=== PATIENT | male | born 1980 | race Caucasian/White ===

== ENCOUNTER 2021-08-04 15:53 | Inpatient (IN) | payer OTHER ==
[2021-08-04 17:59] VITALS: BMI 29.0
[2021-08-04] MEDS ORDERED: IBUPROFEN 400 MG TABLET (FP) PO PRN (20:48)
[2021-08-04] MEDS ORDERED: BISMUTH SUBSALICYLATE 524 MG/30 ML PO PRN (20:48)
[2021-08-04] MEDS ORDERED: MENTHOL/PHENOL 1 EACH UD MM PRN (20:48)
[2021-08-04] MEDS ORDERED: ACETAMINOPHEN 325 MG TABLET (FP) PO PRN (20:48)
[2021-08-04] MEDS ORDERED: MAGNESIUM CITRATE 300 ML BOTTLE PO PRN (20:48)
[2021-08-04] MEDS ORDERED: P-EPHED 60MG/TRIPROLIDI 2.5MG TABLET PO PRN (20:48)
[2021-08-04] MEDS ORDERED: ONDANSETRON *ODT* 4 MG TABLET SL PRN (20:48)
[2021-08-04] MEDS ORDERED: MAG HYDROX/AL HYDROX/SIMETH 30 ML UNIT-DOSE CUP PO PRN (20:48)
[2021-08-04] MEDS ORDERED: guaiFENesin 200 MG/10 ML 10 ML UNIT-DOSE CUPS PO PRN (20:48)
[2021-08-04] MEDS ORDERED: MAGNESIUM HYDROX 2400MG/30ML ORAL SUSPENSION 30 ML CUP PO PRN (20:48)
[2021-08-04] MEDS ORDERED: methaDONE HCL 10 MG TABLET (FOR DETOX USE ONLY) PO ONE (20:50)
[2021-08-04] MEDS: MELATONIN 5 MG TABLETS PO SCH (22:10)
[2021-08-04] MEDS: diazePAM 5 MG TABLET PO SCH (22:10)
[2021-08-04] MEDS: THIAMINE HCL 100 MG TABLET (FP) PO SCH (22:10)
[2021-08-05] MEDS: diazePAM 5 MG TABLET PO SCH ×4 (06:01→23:15)
[2021-08-05] MEDS ORDERED: methaDONE HCL 10 MG TABLET (FOR DETOX USE ONLY) ONE (09:52)
[2021-08-05] MEDS ORDERED: MASKS NR ONE (10:40)
[2021-08-05] MEDS: PRENATAL VITAMINS W/ FOLIC ACID TABLET (FP) PO SCH (10:48)
[2021-08-05] MEDS: METHOCARBAMOL 500 MG TABLET PO PRN ×2 (10:48→17:15)
[2021-08-05 11:56] LABS: HEMATOCRIT 41.1 % (35.4-49); HEMOGLOBIN 14.5 GM/dL (11.7-16.9); MCH 30.2 pg (25.7-33.7); MCHC 35.3 g/dl (32.0-35.9); MEAN CELL VOLUME 85.6 fl (80-96); MEAN PLT VOLUME 8.4 fl (7.5-11.1); PLATELET COUNT 191 10^3/uL (134-434); RDW 13.6 % (11.9-15.9); WHITE BLOOD COUNT 5.5 K/mm3 (4.0-10.0)
[2021-08-05 12:32] LABS: ALBUMIN 3.4 g/dl (3.4-5.0); BLOOD UREA NITROGEN 13.6 mg/dL (7-18); CALCIUM 8.5 mg/dL (8.5-10.1)
[2021-08-05 12:37] LABS: CREATININE 0.7 mg/dL (0.55-1.3)
[2021-08-05 12:38] LABS: BILIRUBIN,TOTAL 0.8 mg/dL (0.2-1); TOT PROT 6.8 g/dl (6.4-8.2)
[2021-08-05] MEDS: hydrOXYzine PAMOATE 25 MG CAPSULE (FP) PO PRN (17:14)
[2021-08-05] MEDS: cloNIDine HCL 0.1 MG TABLET PO PRN (17:15)
[2021-08-05] MEDS: MELATONIN 5 MG TABLETS PO SCH (23:13)
[2021-08-05] MEDS: INSULIN SLIDING SCALE (NOVOLOG) 1 VIAL SQ SCH (23:14)
[2021-08-05] MEDS: THIAMINE HCL 100 MG TABLET (FP) PO SCH (23:15)
[2021-08-06] MEDS: diazePAM 5 MG TABLET PO PRN ×2 (01:13→10:47)
[2021-08-06] MEDS: ACETAMINOPHEN 325 MG TABLET (FP) PO PRN ×2 (01:14→19:00)
[2021-08-06] MEDS: METHOCARBAMOL 500 MG TABLET PO PRN ×2 (01:14→10:47)
[2021-08-06] MEDS: cloNIDine HCL 0.1 MG TABLET PO PRN (01:15)
[2021-08-06] MEDS: hydrOXYzine PAMOATE 25 MG CAPSULE (FP) PO PRN ×2 (01:15→10:46)
[2021-08-06] MEDS: diazePAM 5 MG TABLET PO SCH ×2 (06:25→17:43)
[2021-08-06] MEDS: INSULIN SLIDING SCALE (NOVOLOG) 1 VIAL SQ SCH ×4 (06:55→21:19)
[2021-08-06] MEDS ORDERED: methaDONE HCL 10 MG TABLET (FOR DETOX USE ONLY) PO ONE (10:00)
[2021-08-06] MEDS: PRENATAL VITAMINS W/ FOLIC ACID TABLET (FP) PO SCH (10:48)
[2021-08-06] MEDS: ASPIRIN 81 MG CHEWABLE TABLETS PO SCH (13:26)
[2021-08-06] MEDS: METOPROLOL TARTRATE 25 MG TABLET (FP) PO SCH (13:26)
[2021-08-06] MEDS ORDERED: NICOTINE 10 MG CARTRIDGE (INHALER) IH PRN (15:02)
[2021-08-06] MEDS: metFORMIN HCL 500 MG TABLET (FP) PO SCH (17:43)
[2021-08-06] MEDS: LISINOPRIL 20 MG TABLET PO SCH (21:15)
[2021-08-06] MEDS: THIAMINE HCL 100 MG TABLET (FP) PO SCH (21:15)
[2021-08-06] MEDS: MELATONIN 5 MG TABLETS PO SCH (21:16)
[2021-08-07] MEDS ORDERED: diazePAM 5 MG TABLET PO ONE ×2 (06:00→22:38)
[2021-08-07] MEDS: metFORMIN HCL 500 MG TABLET (FP) PO SCH ×2 (06:04→17:42)
[2021-08-07] MEDS: INSULIN SLIDING SCALE (NOVOLOG) 1 VIAL SQ SCH ×3 (06:04→18:27)
[2021-08-07] MEDS ORDERED: methaDONE HCL 10 MG TABLET (FOR DETOX USE ONLY) ONE (09:26)
[2021-08-07] MEDS: METHOCARBAMOL 500 MG TABLET PO PRN ×2 (10:32→23:03)
[2021-08-07] MEDS: LISINOPRIL 20 MG TABLET PO SCH ×2 (10:32→23:04)
[2021-08-07] MEDS: ASPIRIN 81 MG CHEWABLE TABLETS PO SCH (10:32)
[2021-08-07] MEDS: METOPROLOL TARTRATE 25 MG TABLET (FP) PO SCH (10:32)
[2021-08-07] MEDS: PRENATAL VITAMINS W/ FOLIC ACID TABLET (FP) PO SCH (10:33)
[2021-08-07] MEDS: ACETAMINOPHEN 325 MG TABLET (FP) PO PRN ×2 (12:23→17:44)
[2021-08-07] MEDS: GABAPENTIN 100 MG CAPSULE PO SCH ×2 (14:02→23:03)
[2021-08-07] MEDS: hydrOXYzine PAMOATE 25 MG CAPSULE (FP) PO PRN ×2 (17:44→23:03)
[2021-08-07] MEDS: diazePAM 5 MG TABLET PO PRN (17:44)
[2021-08-07] MEDS: MELATONIN 5 MG TABLETS PO SCH (23:03)
[2021-08-07] MEDS: THIAMINE HCL 100 MG TABLET (FP) PO SCH (23:03)
[2021-08-08] MEDS: GABAPENTIN 100 MG CAPSULE PO SCH (07:19)
[2021-08-08] MEDS: INSULIN SLIDING SCALE (NOVOLOG) 1 VIAL SQ SCH ×2 (07:20→11:55)
[2021-08-08] MEDS: metFORMIN HCL 500 MG TABLET (FP) PO SCH (08:04)
[2021-08-08] MEDS ORDERED: methaDONE HCL 10 MG TABLET (FOR DETOX USE ONLY) PO ONE (10:00)
[2021-08-08] MEDS ORDERED: DIVALPROEX SODIUM 250 MG TABLET E.C. PO SCH (10:00)
[2021-08-08] MEDS ORDERED: SERTRALINE HCL 50 MG TABLET (FP) PO SCH (10:00)
[2021-08-08 10:03] VITALS: BP 114/69; PULSE 73; TEMP 96.4
[2021-08-08] MEDS: LISINOPRIL 20 MG TABLET PO SCH (10:53)
[2021-08-08] MEDS: METOPROLOL TARTRATE 25 MG TABLET (FP) PO SCH (10:53)
[2021-08-08] MEDS: ASPIRIN 81 MG CHEWABLE TABLETS PO SCH (10:53)
[2021-08-08] MEDS: PRENATAL VITAMINS W/ FOLIC ACID TABLET (FP) PO SCH (10:54)
[2021-08-08] MEDS: hydrOXYzine PAMOATE 25 MG CAPSULE (FP) PO PRN (10:58)
[2021-08-08] MEDS ORDERED: GABAPENTIN 250 MG/5 ML ORAL SOLUTION, 470 ML BOTTLE PO SCH (14:00)
[2021-08-08] MEDS ORDERED: GABAPENTIN 300 MG CAPSULE PO SCH (14:00)
== END 2021-08-08 13:45 | disposition left against medical advice (07) | DRG 770 ==
LOC: YASAS 15:53 → Y3N 19:57
PROVIDERS: ADMIT Allergy & Immunology; ATTEND Allergy & Immunology
PROC: HZ2ZZZZ Detoxification Services for Substance Abuse Treatment (ICD-10-PCS; principal; 2021-08-04)
DX: F11.23 Opioid dependence with withdrawal (principal); F13.230 Sedative, hypnotic or anxiolytic dependence with withdrawal, uncomplicated; F14.20 Cocaine dependence, uncomplicated; F17.210 Nicotine dependence, cigarettes, uncomplicated; F19.24 Other psychoactive substance dependence with psychoactive substance-induced mood disorder; G47.00 Insomnia, unspecified; R01.1 Cardiac murmur, unspecified; Z89.422 Acquired absence of other left toe(s); Z91.19 Patient's noncompliance with other medical treatment and regimen; Z86.19 Personal history of other infectious and parasitic diseases; Z56.0 Unemployment, unspecified; Z59.00 Homelessness unspecified
CPT/HCPCS: 36415; 71046-TC-FY; 80053; 82962; 85027; 86780; C9803; J0735; U0003; U0005

== ENCOUNTER 2022-08-03 12:48 | Inpatient (IN) | payer OTHER ==
[2022-08-03 14:25] VITALS: BMI 32.3
[2022-08-03] MEDS ORDERED: NALOXONE HCL (KLOXXADO) 8 MG SPRAY NS PRN (15:31)
[2022-08-03] MEDS ORDERED: DICYCLOMINE HCL 10 MG CAPSULE PO PRN (15:31)
[2022-08-03] MEDS ORDERED: NICOTINE 10 MG CARTRIDGE (INHALER) IH PRN (15:31)
[2022-08-03] MEDS ORDERED: LOPERAMIDE HCL 2 MG CAPSULE PO PRN (15:31)
[2022-08-03] MEDS ORDERED: BENZOCAINE/MENTHOL (CHLORASEPTIC ) LOZENGE MM PRN (15:31)
[2022-08-03] MEDS ORDERED: MAGNESIUM CITRATE 300 ML BOTTLE PO PRN (15:31)
[2022-08-03] MEDS ORDERED: IBUPROFEN 400 MG TABLET (FP) PO PRN (15:31)
[2022-08-03] MEDS ORDERED: ONDANSETRON *ODT* 4 MG TABLET SL PRN (15:31)
[2022-08-03] MEDS ORDERED: IBUPROFEN 600 MG TABLET (FP) PO PRN (15:31)
[2022-08-03] MEDS ORDERED: cloNIDine HCL 0.1 MG TABLET PO PRN (15:31)
[2022-08-03] MEDS ORDERED: MAG HYDROX/AL HYDROX/SIMETH 30 ML UNIT-DOSE CUP PO PRN (15:31)
[2022-08-03] MEDS ORDERED: ACETAMINOPHEN 325 MG TABLET (FP) PO PRN ×2 (15:31)
[2022-08-03] MEDS ORDERED: MAGNESIUM HYDROX 2400MG/30ML ORAL SUSPENSION 30 ML CUP PO PRN (15:31)
[2022-08-03] MEDS ORDERED: BISMUTH SUBSALICYLATE 524 MG/30 ML PO PRN (15:31)
[2022-08-03] MEDS ORDERED: methaDONE HCL 10 MG TABLET (FOR DETOX USE ONLY) PO ONE (15:31)
[2022-08-03] MEDS ORDERED: INSULIN (NOVOLOG) ASPART 100 UNITS/ML 10ML VIAL ONE ×2 (15:58→23:31)
[2022-08-03] MEDS: INSULIN SLIDING SCALE (NOVOLOG) 1 VIAL SQ SCH ×2 (16:00→23:32)
[2022-08-03] MEDS: diazePAM 5 MG TABLET PO SCH ×3 (17:18→23:32)
[2022-08-03] MEDS: ASPIRIN 81 MG CHEWABLE TABLETS PO SCH (17:48)
[2022-08-03] MEDS: hydrOXYzine PAMOATE 25 MG CAPSULE (FP) PO SCH ×2 (17:48→23:33)
[2022-08-03] MEDS: METOPROLOL TARTRATE 25 MG TABLET (FP) PO SCH (17:48)
[2022-08-03] MEDS: metFORMIN HCL 500 MG TABLET (FP) PO SCH (17:48)
[2022-08-03] MEDS: PRENATAL VITAMINS W/ FOLIC ACID TABLET (FP) PO SCH (17:49)
[2022-08-03] MEDS: diazePAM 5 MG TABLET PO PRN (17:50)
[2022-08-03] MEDS: NICOTINE 14 MG/24 HOURS TOPICAL PATCH TD SCH (18:03)
[2022-08-03] MEDS: LISINOPRIL 20 MG TABLET PO SCH (23:32)
[2022-08-03] MEDS: THIAMINE HCL 100 MG TABLET (FP) PO SCH (23:32)
[2022-08-03] MEDS: MELATONIN 5 MG TABLETS PO SCH (23:33)
[2022-08-04] MEDS: metFORMIN HCL 500 MG TABLET (FP) PO SCH ×2 (06:21→18:37)
[2022-08-04] MEDS: diazePAM 5 MG TABLET PO SCH ×2 (06:21→18:50)
[2022-08-04] MEDS: hydrOXYzine PAMOATE 25 MG CAPSULE (FP) PO SCH ×5 (06:21→23:50)
[2022-08-04] MEDS: INSULIN SLIDING SCALE (NOVOLOG) 1 VIAL SQ SCH ×4 (06:37→23:20)
[2022-08-04] MEDS: NICOTINE 14 MG/24 HOURS TOPICAL PATCH TD SCH (10:22)
[2022-08-04] MEDS: METOPROLOL TARTRATE 25 MG TABLET (FP) PO SCH (10:22)
[2022-08-04] MEDS: ASPIRIN 81 MG CHEWABLE TABLETS PO SCH (10:22)
[2022-08-04] MEDS: LISINOPRIL 20 MG TABLET PO SCH ×2 (10:22→23:19)
[2022-08-04] MEDS: METHOCARBAMOL 500 MG TABLET PO PRN (10:22)
[2022-08-04] MEDS: PRENATAL VITAMINS W/ FOLIC ACID TABLET (FP) PO SCH (10:22)
[2022-08-04] MEDS: diazePAM 5 MG TABLET PO PRN ×2 (10:22→23:24)
[2022-08-04] MEDS: SERTRALINE HCL 50 MG TABLET (FP) PO SCH (11:31)
[2022-08-04] MEDS: HALOPERIDOL 5 MG TABLET PO SCH ×2 (11:31→23:19)
[2022-08-04] MEDS ORDERED: INSULIN (NOVOLOG) ASPART 100 UNITS/ML 10ML VIAL ONE ×2 (11:40→17:21)
[2022-08-04] MEDS: GABAPENTIN 300 MG CAPSULE PO SCH ×2 (13:16→23:19)
[2022-08-04 13:46] LABS: HEMATOCRIT 36.7 % (35.4-49); HEMOGLOBIN 12.3 GM/dL (11.7-16.9); MCH 27.9 pg (25.7-33.7); MCHC 33.5 g/dl (32.0-35.9); MEAN CELL VOLUME 83.3 fl (80-96); MEAN PLT VOLUME 8.2 fl (7.5-11.1); PLATELET COUNT 257 10^3/uL (134-434); RDW 14.1 % (11.9-15.9); WHITE BLOOD COUNT 7.2 K/mm3 (4.0-10.0)
[2022-08-04 13:58] LABS: ALBUMIN 3.3 g/dl (3.4-5.0); BLOOD UREA NITROGEN 18.3 mg/dL (7-18); CREATININE 0.9 mg/dL (0.55-1.3)
[2022-08-04 14:00] LABS: BILIRUBIN,TOTAL 0.4 mg/dL (0.2-1); TOT PROT 6.5 g/dl (6.4-8.2)
[2022-08-04] MEDS: THIAMINE HCL 100 MG TABLET (FP) PO SCH (23:19)
[2022-08-04] MEDS: MELATONIN 5 MG TABLETS PO SCH (23:20)
[2022-08-05] MEDS: hydrOXYzine PAMOATE 25 MG CAPSULE (FP) PO SCH ×5 (05:06→22:58)
[2022-08-05] MEDS: GABAPENTIN 300 MG CAPSULE PO SCH ×3 (05:06→22:03)
[2022-08-05] MEDS ORDERED: diazePAM 5 MG TABLET PO ONE (06:00)
[2022-08-05] MEDS: metFORMIN HCL 500 MG TABLET (FP) PO SCH ×2 (06:04→17:56)
[2022-08-05] MEDS: INSULIN SLIDING SCALE (NOVOLOG) 1 VIAL SQ SCH ×4 (06:43→22:05)
[2022-08-05] MEDS ORDERED: INSULIN (NOVOLOG) ASPART 100 UNITS/ML 10ML VIAL ONE ×4 (07:38→22:07)
[2022-08-05] MEDS ORDERED: methaDONE HCL 10 MG TABLET (FOR DETOX USE ONLY) PO ONE (10:00)
[2022-08-05] MEDS: HALOPERIDOL 5 MG TABLET PO SCH ×2 (10:31→22:03)
[2022-08-05] MEDS: ASPIRIN 81 MG CHEWABLE TABLETS PO SCH (10:31)
[2022-08-05] MEDS: METOPROLOL TARTRATE 25 MG TABLET (FP) PO SCH (10:32)
[2022-08-05] MEDS: SERTRALINE HCL 50 MG TABLET (FP) PO SCH (10:32)
[2022-08-05] MEDS: METHOCARBAMOL 500 MG TABLET PO PRN (10:32)
[2022-08-05] MEDS: LISINOPRIL 20 MG TABLET PO SCH ×2 (10:32→22:03)
[2022-08-05] MEDS: PRENATAL VITAMINS W/ FOLIC ACID TABLET (FP) PO SCH (10:32)
[2022-08-05] MEDS: diazePAM 5 MG TABLET PO PRN ×2 (10:33→22:07)
[2022-08-05] MEDS: NICOTINE 14 MG/24 HOURS TOPICAL PATCH TD SCH (10:35)
[2022-08-05] MEDS: THIAMINE HCL 100 MG TABLET (FP) PO SCH (22:03)
[2022-08-05] MEDS: MELATONIN 5 MG TABLETS PO SCH (22:58)
[2022-08-06] MEDS: GABAPENTIN 300 MG CAPSULE PO SCH ×3 (05:18→23:00)
[2022-08-06] MEDS: hydrOXYzine PAMOATE 25 MG CAPSULE (FP) PO SCH ×5 (05:18→23:01)
[2022-08-06] MEDS: diazePAM 5 MG TABLET PO PRN ×2 (05:19→10:23)
[2022-08-06] MEDS: metFORMIN HCL 500 MG TABLET (FP) PO SCH ×2 (07:15→17:00)
[2022-08-06] MEDS: INSULIN SLIDING SCALE (NOVOLOG) 1 VIAL SQ SCH ×4 (07:52→23:00)
[2022-08-06] MEDS: ASPIRIN 81 MG CHEWABLE TABLETS PO SCH (10:21)
[2022-08-06] MEDS: PRENATAL VITAMINS W/ FOLIC ACID TABLET (FP) PO SCH (10:22)
[2022-08-06] MEDS: METOPROLOL TARTRATE 25 MG TABLET (FP) PO SCH (10:22)
[2022-08-06] MEDS: METHOCARBAMOL 500 MG TABLET PO PRN ×2 (10:22→17:00)
[2022-08-06] MEDS: LISINOPRIL 20 MG TABLET PO SCH ×2 (10:22→23:00)
[2022-08-06] MEDS: SERTRALINE HCL 50 MG TABLET (FP) PO SCH (10:22)
[2022-08-06] MEDS: NICOTINE 14 MG/24 HOURS TOPICAL PATCH TD SCH (10:23)
[2022-08-06] MEDS: HALOPERIDOL 5 MG TABLET PO SCH ×2 (12:45→23:00)
[2022-08-06] MEDS ORDERED: INSULIN (NOVOLOG) ASPART 100 UNITS/ML 10ML VIAL ONE ×2 (16:59→22:59)
[2022-08-06] MEDS: THIAMINE HCL 100 MG TABLET (FP) PO SCH (23:00)
[2022-08-06] MEDS: MELATONIN 5 MG TABLETS PO SCH (23:21)
[2022-08-07] MEDS: GABAPENTIN 300 MG CAPSULE PO SCH ×3 (05:58→22:36)
[2022-08-07] MEDS: hydrOXYzine PAMOATE 25 MG CAPSULE (FP) PO SCH ×5 (05:59→22:37)
[2022-08-07] MEDS ORDERED: INSULIN (NOVOLOG) ASPART 100 UNITS/ML 10ML VIAL ONE ×2 (07:26→11:04)
[2022-08-07] MEDS: INSULIN SLIDING SCALE (NOVOLOG) 1 VIAL SQ SCH ×4 (07:30→22:40)
[2022-08-07] MEDS: metFORMIN HCL 500 MG TABLET (FP) PO SCH ×2 (07:30→17:26)
[2022-08-07] MEDS ORDERED: methaDONE HCL 10 MG TABLET (FOR DETOX USE ONLY) PO ONE (10:00)
[2022-08-07] MEDS: ASPIRIN 81 MG CHEWABLE TABLETS PO SCH (10:42)
[2022-08-07] MEDS: METHOCARBAMOL 500 MG TABLET PO PRN (10:42)
[2022-08-07] MEDS: HALOPERIDOL 5 MG TABLET PO SCH ×2 (10:42→22:37)
[2022-08-07] MEDS: LISINOPRIL 20 MG TABLET PO SCH ×2 (10:42→22:37)
[2022-08-07] MEDS: METOPROLOL TARTRATE 25 MG TABLET (FP) PO SCH (10:43)
[2022-08-07] MEDS: SERTRALINE HCL 50 MG TABLET (FP) PO SCH (10:43)
[2022-08-07] MEDS: PRENATAL VITAMINS W/ FOLIC ACID TABLET (FP) PO SCH (10:44)
[2022-08-07] MEDS: NICOTINE 14 MG/24 HOURS TOPICAL PATCH TD SCH (10:44)
[2022-08-07 13:54] VITALS: RESP 18
[2022-08-07] MEDS: THIAMINE HCL 100 MG TABLET (FP) PO SCH (22:36)
[2022-08-07] MEDS: MELATONIN 5 MG TABLETS PO SCH (22:40)
[2022-08-08] MEDS: GABAPENTIN 300 MG CAPSULE PO SCH ×2 (05:53→13:03)
[2022-08-08] MEDS: hydrOXYzine PAMOATE 25 MG CAPSULE (FP) PO SCH ×4 (05:53→17:11)
[2022-08-08] MEDS ORDERED: INSULIN (NOVOLOG) ASPART 100 UNITS/ML 10ML VIAL ONE ×3 (05:58→16:41)
[2022-08-08] MEDS: metFORMIN HCL 500 MG TABLET (FP) PO SCH ×2 (07:17→16:42)
[2022-08-08] MEDS: INSULIN SLIDING SCALE (NOVOLOG) 1 VIAL SQ SCH ×3 (07:18→17:10)
[2022-08-08] MEDS: SERTRALINE HCL 50 MG TABLET (FP) PO SCH (10:29)
[2022-08-08] MEDS: ASPIRIN 81 MG CHEWABLE TABLETS PO SCH (10:29)
[2022-08-08] MEDS: HALOPERIDOL 5 MG TABLET PO SCH (10:29)
[2022-08-08] MEDS: NICOTINE 14 MG/24 HOURS TOPICAL PATCH TD SCH (10:29)
[2022-08-08] MEDS: PRENATAL VITAMINS W/ FOLIC ACID TABLET (FP) PO SCH (10:29)
[2022-08-08] MEDS: METOPROLOL TARTRATE 25 MG TABLET (FP) PO SCH (10:29)
[2022-08-08] MEDS: LISINOPRIL 20 MG TABLET PO SCH (10:29)
[2022-08-08 18:22] VITALS: BP 136/79; PULSE 70; TEMP 97.7
== END 2022-08-08 19:05 | disposition other institution (70) | DRG 773 ==
LOC: YASAS 12:48 → Y6N 16:04
PROVIDERS: ADMIT Allergy & Immunology; ATTEND Surgery
PROC: HZ2ZZZZ Detoxification Services for Substance Abuse Treatment (ICD-10-PCS; principal; 2022-08-04)
DX: F11.23 Opioid dependence with withdrawal (principal); F14.20 Cocaine dependence, uncomplicated; F13.10 Sedative, hypnotic or anxiolytic abuse, uncomplicated; F12.20 Cannabis dependence, uncomplicated; F17.210 Nicotine dependence, cigarettes, uncomplicated; F25.1 Schizoaffective disorder, depressive type; F19.282 Other psychoactive substance dependence with psychoactive substance-induced sleep disorder; F19.24 Other psychoactive substance dependence with psychoactive substance-induced mood disorder; I10 Essential (primary) hypertension; E11.9 Type 2 diabetes mellitus without complications; Z79.84 Long term (current) use of oral hypoglycemic drugs; R76.11 Nonspecific reaction to tuberculin skin test without active tuberculosis; Z86.19 Personal history of other infectious and parasitic diseases; M54.50 Low back pain, unspecified; G89.29 Other chronic pain; Z86.79 Personal history of other diseases of the circulatory system
CPT/HCPCS: 36415; 80053; 82962; 85027; 86780; C9803-CS; U0003; U0005

== ENCOUNTER 2022-08-08 19:55 | Inpatient (IN) | payer OTHER ==
[2022-08-08] MEDS ORDERED: P-EPHED 60MG/TRIPROLIDI 2.5MG TABLET PO PRN (22:17)
[2022-08-08] MEDS ORDERED: LOPERAMIDE HCL 2 MG CAPSULE PO PRN (22:17)
[2022-08-08] MEDS ORDERED: MAG HYDROX/AL HYDROX/SIMETH 30 ML UNIT-DOSE CUP PO PRN (22:17)
[2022-08-08] MEDS ORDERED: NICOTINE POLACRILEX 2 MG GUM BUC PRN (22:17)
[2022-08-08] MEDS ORDERED: BENZOCAINE/MENTHOL (CHLORASEPTIC ) LOZENGE MM PRN (22:17)
[2022-08-08] MEDS ORDERED: ACETAMINOPHEN 325 MG TABLET (FP) PO PRN (22:17)
[2022-08-08] MEDS ORDERED: guaiFENesin 200 MG/10 ML 10 ML UNIT-DOSE CUPS PO PRN (22:17)
[2022-08-08] MEDS ORDERED: MAGNESIUM CITRATE 300 ML BOTTLE PO PRN (22:17)
[2022-08-08] MEDS ORDERED: MAGNESIUM HYDROX 2400MG/30ML ORAL SUSPENSION 30 ML CUP PO PRN (22:17)
[2022-08-08] MEDS: MELATONIN 5 MG TABLETS PO SCH (23:01)
[2022-08-09] MEDS ORDERED: metFORMIN HCL 500 MG TABLET (FP) PO SCH (07:00)
[2022-08-09] MEDS: ASPIRIN 81 MG CHEWABLE TABLETS PO SCH (09:51)
[2022-08-09] MEDS: METOPROLOL TARTRATE 25 MG TABLET (FP) PO SCH (09:51)
[2022-08-09] MEDS: PRENATAL VITAMINS W/ FOLIC ACID TABLET (FP) PO SCH (09:51)
[2022-08-09] MEDS: LISINOPRIL 20 MG TABLET PO SCH ×2 (09:51→21:04)
[2022-08-09] MEDS: IBUPROFEN 400 MG TABLET (FP) PO PRN (09:53)
[2022-08-09] MEDS: NICOTINE 14 MG/24 HOURS TOPICAL PATCH TD SCH (09:54)
[2022-08-09] MEDS ORDERED: INSULIN SLIDING SCALE (NOVOLOG) 1 VIAL SQ SCH (11:15)
[2022-08-09] MEDS: GABAPENTIN 300 MG CAPSULE PO SCH ×2 (13:02→21:04)
[2022-08-09] MEDS: HALOPERIDOL 5 MG TABLET PO SCH ×2 (13:02→21:04)
[2022-08-09] MEDS: SERTRALINE HCL 50 MG TABLET (FP) PO SCH (13:02)
[2022-08-09] MEDS: INSULIN SLIDING SCALE (NOVOLOG) 1 VIAL SQ SCH ×2 (13:05→16:40)
[2022-08-09] MEDS: metFORMIN HCL 500 MG TABLET (FP) PO SCH (16:41)
[2022-08-09] MEDS: MELATONIN 5 MG TABLETS PO SCH (21:02)
[2022-08-09] MEDS: THIAMINE HCL 100 MG TABLET (FP) PO SCH (21:02)
[2022-08-09] MEDS: hydrOXYzine PAMOATE 25 MG CAPSULE (FP) PO PRN (21:04)
[2022-08-10] MEDS: INSULIN SLIDING SCALE (NOVOLOG) 1 VIAL SQ SCH ×2 (06:34→17:15)
[2022-08-10] MEDS: metFORMIN HCL 500 MG TABLET (FP) PO SCH ×2 (06:35→17:00)
[2022-08-10] MEDS: GABAPENTIN 300 MG CAPSULE PO SCH ×3 (06:36→21:21)
[2022-08-10] MEDS ORDERED: ASCORBIC ACID 250 MG TABLET (FP) PO SCH (10:00)
[2022-08-10] MEDS: PRENATAL VITAMINS W/ FOLIC ACID TABLET (FP) PO SCH (10:30)
[2022-08-10] MEDS: NICOTINE 14 MG/24 HOURS TOPICAL PATCH TD SCH (10:30)
[2022-08-10] MEDS: SERTRALINE HCL 50 MG TABLET (FP) PO SCH (10:32)
[2022-08-10] MEDS: ASPIRIN 81 MG CHEWABLE TABLETS PO SCH (10:32)
[2022-08-10] MEDS: HALOPERIDOL 5 MG TABLET PO SCH ×2 (10:32→21:21)
[2022-08-10] MEDS ORDERED: ASCORBIC ACID 500 MG TABLET (FP) PO SCH (10:43)
[2022-08-10] MEDS: METOPROLOL TARTRATE 25 MG TABLET (FP) PO SCH (11:16)
[2022-08-10] MEDS: LISINOPRIL 20 MG TABLET PO SCH (11:16)
[2022-08-10] MEDS: ASCORBIC ACID 500 MG TABLET (FP) PO SCH (11:45)
[2022-08-10] MEDS: IBUPROFEN 400 MG TABLET (FP) PO PRN (18:15)
[2022-08-10] MEDS: MELATONIN 5 MG TABLETS PO SCH (21:21)
[2022-08-10] MEDS: THIAMINE HCL 100 MG TABLET (FP) PO SCH (21:21)
[2022-08-11] MEDS: GABAPENTIN 300 MG CAPSULE PO SCH ×3 (06:21→21:03)
[2022-08-11] MEDS: metFORMIN HCL 500 MG TABLET (FP) PO SCH ×2 (06:21→16:50)
[2022-08-11] MEDS: INSULIN SLIDING SCALE (NOVOLOG) 1 VIAL SQ SCH ×2 (06:22→16:51)
[2022-08-11] MEDS: METOPROLOL TARTRATE 25 MG TABLET (FP) PO SCH (09:38)
[2022-08-11] MEDS: SERTRALINE HCL 50 MG TABLET (FP) PO SCH (09:38)
[2022-08-11] MEDS: NICOTINE 14 MG/24 HOURS TOPICAL PATCH TD SCH (09:38)
[2022-08-11] MEDS: ASPIRIN 81 MG CHEWABLE TABLETS PO SCH (09:38)
[2022-08-11] MEDS: PRENATAL VITAMINS W/ FOLIC ACID TABLET (FP) PO SCH (09:38)
[2022-08-11] MEDS: HALOPERIDOL 5 MG TABLET PO SCH ×2 (09:38→21:03)
[2022-08-11] MEDS: LISINOPRIL 10 MG TABLET PO SCH ×2 (09:39→21:03)
[2022-08-11] MEDS: ASCORBIC ACID 500 MG TABLET (FP) PO SCH (12:15)
[2022-08-11] MEDS ORDERED: BUPRENORPHINE/NALOXONE 8 MG/2 MG FILM PACKET SL ONE (13:44)
[2022-08-11] MEDS ORDERED: INSULIN (NOVOLOG) ASPART 100 UNITS/ML 10ML VIAL ONE (16:50)
[2022-08-11] MEDS: THIAMINE HCL 100 MG TABLET (FP) PO SCH (21:03)
[2022-08-11] MEDS: hydrOXYzine PAMOATE 25 MG CAPSULE (FP) PO PRN (21:03)
[2022-08-11] MEDS: MELATONIN 5 MG TABLETS PO SCH (21:03)
[2022-08-12] MEDS: metFORMIN HCL 500 MG TABLET (FP) PO SCH ×2 (06:25→16:32)
[2022-08-12] MEDS: GABAPENTIN 300 MG CAPSULE PO SCH ×3 (06:25→21:05)
[2022-08-12] MEDS: INSULIN SLIDING SCALE (NOVOLOG) 1 VIAL SQ SCH ×2 (06:38→16:34)
[2022-08-12] MEDS: ASPIRIN 81 MG CHEWABLE TABLETS PO SCH (09:49)
[2022-08-12] MEDS: HALOPERIDOL 5 MG TABLET PO SCH ×2 (09:49→21:05)
[2022-08-12] MEDS: BUPRENORPHINE/NALOXONE 8 MG/2 MG FILM PACKET SL SCH ×2 (09:50→21:06)
[2022-08-12] MEDS: PRENATAL VITAMINS W/ FOLIC ACID TABLET (FP) PO SCH (09:50)
[2022-08-12] MEDS: ASCORBIC ACID 500 MG TABLET (FP) PO SCH (09:50)
[2022-08-12] MEDS: NICOTINE 14 MG/24 HOURS TOPICAL PATCH TD SCH (09:50)
[2022-08-12] MEDS: SERTRALINE HCL 50 MG TABLET (FP) PO SCH (09:51)
[2022-08-12] MEDS: LISINOPRIL 10 MG TABLET PO SCH ×2 (10:07→21:05)
[2022-08-12] MEDS: METOPROLOL TARTRATE 25 MG TABLET (FP) PO SCH (10:07)
[2022-08-12] MEDS: MELATONIN 5 MG TABLETS PO SCH (21:05)
[2022-08-12] MEDS: THIAMINE HCL 100 MG TABLET (FP) PO SCH (21:31)
[2022-08-13] MEDS: metFORMIN HCL 500 MG TABLET (FP) PO SCH ×2 (06:30→16:32)
[2022-08-13] MEDS: GABAPENTIN 300 MG CAPSULE PO SCH ×3 (06:30→21:28)
[2022-08-13] MEDS: INSULIN SLIDING SCALE (NOVOLOG) 1 VIAL SQ SCH ×2 (06:31→16:32)
[2022-08-13] MEDS ORDERED: INSULIN (NOVOLOG) ASPART 100 UNITS/ML 10ML VIAL ONE (06:31)
[2022-08-13] MEDS: ASPIRIN 81 MG CHEWABLE TABLETS PO SCH (10:01)
[2022-08-13] MEDS: HALOPERIDOL 5 MG TABLET PO SCH ×2 (10:01→21:28)
[2022-08-13] MEDS: NICOTINE 14 MG/24 HOURS TOPICAL PATCH TD SCH (10:01)
[2022-08-13] MEDS: METOPROLOL TARTRATE 25 MG TABLET (FP) PO SCH (10:01)
[2022-08-13] MEDS: PRENATAL VITAMINS W/ FOLIC ACID TABLET (FP) PO SCH (10:02)
[2022-08-13] MEDS: LISINOPRIL 10 MG TABLET PO SCH ×2 (10:02→21:28)
[2022-08-13] MEDS: SERTRALINE HCL 50 MG TABLET (FP) PO SCH (10:02)
[2022-08-13] MEDS: ASCORBIC ACID 500 MG TABLET (FP) PO SCH (10:03)
[2022-08-13] MEDS: BUPRENORPHINE/NALOXONE 8 MG/2 MG FILM PACKET SL SCH ×2 (10:03→21:30)
[2022-08-13] MEDS: MELATONIN 5 MG TABLETS PO SCH (21:28)
[2022-08-13] MEDS: THIAMINE HCL 100 MG TABLET (FP) PO SCH (21:28)
[2022-08-14] MEDS: metFORMIN HCL 500 MG TABLET (FP) PO SCH ×2 (06:27→16:54)
[2022-08-14] MEDS: GABAPENTIN 300 MG CAPSULE PO SCH ×3 (06:27→21:22)
[2022-08-14] MEDS: INSULIN SLIDING SCALE (NOVOLOG) 1 VIAL SQ SCH ×2 (06:29→16:54)
[2022-08-14] MEDS: LISINOPRIL 10 MG TABLET PO SCH ×2 (09:34→21:21)
[2022-08-14] MEDS: ASPIRIN 81 MG CHEWABLE TABLETS PO SCH (09:34)
[2022-08-14] MEDS: PRENATAL VITAMINS W/ FOLIC ACID TABLET (FP) PO SCH (09:34)
[2022-08-14] MEDS: METOPROLOL TARTRATE 25 MG TABLET (FP) PO SCH (09:34)
[2022-08-14] MEDS: ASCORBIC ACID 500 MG TABLET (FP) PO SCH (09:35)
[2022-08-14] MEDS: HALOPERIDOL 5 MG TABLET PO SCH ×2 (09:35→21:21)
[2022-08-14] MEDS: SERTRALINE HCL 50 MG TABLET (FP) PO SCH (09:35)
[2022-08-14] MEDS: NICOTINE 14 MG/24 HOURS TOPICAL PATCH TD SCH (09:35)
[2022-08-14] MEDS: BUPRENORPHINE/NALOXONE 8 MG/2 MG FILM PACKET SL SCH ×2 (09:36→21:22)
[2022-08-14] MEDS: THIAMINE HCL 100 MG TABLET (FP) PO SCH (21:22)
[2022-08-14] MEDS: MELATONIN 5 MG TABLETS PO SCH (21:22)
[2022-08-15] MEDS ORDERED: INSULIN (NOVOLOG) ASPART 100 UNITS/ML 10ML VIAL ONE (03:10)
[2022-08-15] MEDS: GABAPENTIN 300 MG CAPSULE PO SCH ×3 (06:20→21:35)
[2022-08-15] MEDS: metFORMIN HCL 500 MG TABLET (FP) PO SCH ×2 (06:20→17:56)
[2022-08-15] MEDS: INSULIN SLIDING SCALE (NOVOLOG) 1 VIAL SQ SCH ×2 (06:21→16:52)
[2022-08-15] MEDS: HALOPERIDOL 5 MG TABLET PO SCH ×2 (09:56→21:35)
[2022-08-15] MEDS: PRENATAL VITAMINS W/ FOLIC ACID TABLET (FP) PO SCH (09:56)
[2022-08-15] MEDS: BUPRENORPHINE/NALOXONE 8 MG/2 MG FILM PACKET SL SCH ×2 (09:56→21:35)
[2022-08-15] MEDS: SERTRALINE HCL 50 MG TABLET (FP) PO SCH (09:56)
[2022-08-15] MEDS: ASPIRIN 81 MG CHEWABLE TABLETS PO SCH (09:56)
[2022-08-15] MEDS: NICOTINE 14 MG/24 HOURS TOPICAL PATCH TD SCH (11:02)
[2022-08-15] MEDS: LISINOPRIL 10 MG TABLET PO SCH ×2 (11:02→21:35)
[2022-08-15] MEDS: METOPROLOL TARTRATE 25 MG TABLET (FP) PO SCH (11:02)
[2022-08-15] MEDS: ASCORBIC ACID 500 MG TABLET (FP) PO SCH (11:02)
[2022-08-15] MEDS: MELATONIN 5 MG TABLETS PO SCH (21:35)
[2022-08-15] MEDS: THIAMINE HCL 100 MG TABLET (FP) PO SCH (21:35)
[2022-08-16] MEDS: GABAPENTIN 300 MG CAPSULE PO SCH ×3 (06:25→21:29)
[2022-08-16] MEDS: metFORMIN HCL 500 MG TABLET (FP) PO SCH ×2 (06:25→16:52)
[2022-08-16] MEDS: INSULIN SLIDING SCALE (NOVOLOG) 1 VIAL SQ SCH ×2 (06:26→16:52)
[2022-08-16] MEDS: HALOPERIDOL 5 MG TABLET PO SCH ×2 (09:03→21:30)
[2022-08-16] MEDS: ASPIRIN 81 MG CHEWABLE TABLETS PO SCH (09:03)
[2022-08-16] MEDS: NICOTINE 14 MG/24 HOURS TOPICAL PATCH TD SCH (09:04)
[2022-08-16] MEDS: SERTRALINE HCL 50 MG TABLET (FP) PO SCH (09:04)
[2022-08-16] MEDS: PRENATAL VITAMINS W/ FOLIC ACID TABLET (FP) PO SCH (09:04)
[2022-08-16] MEDS: ASCORBIC ACID 500 MG TABLET (FP) PO SCH (09:04)
[2022-08-16] MEDS: BUPRENORPHINE/NALOXONE 8 MG/2 MG FILM PACKET SL SCH ×2 (09:05→21:29)
[2022-08-16] MEDS: LISINOPRIL 10 MG TABLET PO SCH ×2 (09:45→21:30)
[2022-08-16] MEDS: METOPROLOL TARTRATE 25 MG TABLET (FP) PO SCH (09:45)
[2022-08-16] MEDS ORDERED: NICOTINE 10 MG CARTRIDGE (INHALER) IH SCH ×2 (14:30)
[2022-08-16] MEDS ORDERED: NICOTINE 14 MG/24 HOURS TOPICAL PATCH TD SCH (16:00)
[2022-08-16] MEDS: THIAMINE HCL 100 MG TABLET (FP) PO SCH (21:30)
[2022-08-16] MEDS: MELATONIN 5 MG TABLETS PO SCH (21:30)
[2022-08-17] MEDS: metFORMIN HCL 500 MG TABLET (FP) PO SCH ×2 (06:04→16:43)
[2022-08-17] MEDS: GABAPENTIN 300 MG CAPSULE PO SCH ×3 (06:04→21:07)
[2022-08-17] MEDS: INSULIN SLIDING SCALE (NOVOLOG) 1 VIAL SQ SCH ×2 (06:05→16:43)
[2022-08-17] MEDS: LISINOPRIL 10 MG TABLET PO SCH ×2 (10:01→21:07)
[2022-08-17] MEDS: METOPROLOL TARTRATE 25 MG TABLET (FP) PO SCH (10:01)
[2022-08-17] MEDS: ASPIRIN 81 MG CHEWABLE TABLETS PO SCH (10:01)
[2022-08-17] MEDS: SERTRALINE HCL 50 MG TABLET (FP) PO SCH (10:01)
[2022-08-17] MEDS: HALOPERIDOL 5 MG TABLET PO SCH ×2 (10:02→21:07)
[2022-08-17] MEDS: BUPRENORPHINE/NALOXONE 8 MG/2 MG FILM PACKET SL SCH ×2 (10:02→21:08)
[2022-08-17] MEDS: ASCORBIC ACID 500 MG TABLET (FP) PO SCH (10:02)
[2022-08-17] MEDS: PRENATAL VITAMINS W/ FOLIC ACID TABLET (FP) PO SCH (10:02)
[2022-08-17] MEDS: MELATONIN 5 MG TABLETS PO SCH (21:07)
[2022-08-17] MEDS: THIAMINE HCL 100 MG TABLET (FP) PO SCH (21:07)
[2022-08-18] MEDS: metFORMIN HCL 500 MG TABLET (FP) PO SCH ×2 (06:23→16:40)
[2022-08-18] MEDS: GABAPENTIN 300 MG CAPSULE PO SCH ×3 (06:23→21:12)
[2022-08-18] MEDS: INSULIN SLIDING SCALE (NOVOLOG) 1 VIAL SQ SCH ×2 (06:43→16:41)
[2022-08-18] MEDS: ASPIRIN 81 MG CHEWABLE TABLETS PO SCH (09:47)
[2022-08-18] MEDS: HALOPERIDOL 5 MG TABLET PO SCH ×2 (09:52→21:12)
[2022-08-18] MEDS: PRENATAL VITAMINS W/ FOLIC ACID TABLET (FP) PO SCH (09:53)
[2022-08-18] MEDS: LISINOPRIL 10 MG TABLET PO SCH ×2 (09:53→21:12)
[2022-08-18] MEDS: BUPRENORPHINE/NALOXONE 8 MG/2 MG FILM PACKET SL SCH ×2 (09:53→21:13)
[2022-08-18] MEDS: ASCORBIC ACID 500 MG TABLET (FP) PO SCH (09:53)
[2022-08-18] MEDS: METOPROLOL TARTRATE 25 MG TABLET (FP) PO SCH (09:53)
[2022-08-18] MEDS: SERTRALINE HCL 50 MG TABLET (FP) PO SCH (09:53)
[2022-08-18] MEDS: MELATONIN 5 MG TABLETS PO SCH (21:12)
[2022-08-18] MEDS: THIAMINE HCL 100 MG TABLET (FP) PO SCH (21:12)
[2022-08-18 21:54] VITALS: BP 130/89; PULSE 110; RESP 18; TEMP 96.9
== END 2022-08-18 21:55 | disposition left against medical advice (07) | DRG 770 ==
LOC: YASAS 19:55 → Y3E 19:56
PROVIDERS: ADMIT Allergy & Immunology; ATTEND Allergy & Immunology
PROC: HZ42ZZZ Group Counseling for Substance Abuse Treatment, Cognitive-Behavioral (ICD-10-PCS; principal; 2022-08-08)
DX: F11.20 Opioid dependence, uncomplicated (principal); F10.20 Alcohol dependence, uncomplicated; F13.20 Sedative, hypnotic or anxiolytic dependence, uncomplicated; F14.20 Cocaine dependence, uncomplicated; F17.210 Nicotine dependence, cigarettes, uncomplicated; E11.42 Type 2 diabetes mellitus with diabetic polyneuropathy; E11.621 Type 2 diabetes mellitus with foot ulcer; L97.528 Non-pressure chronic ulcer of other part of left foot with other specified severity; Z79.4 Long term (current) use of insulin; Z79.84 Long term (current) use of oral hypoglycemic drugs
CPT/HCPCS: 71046-TC-FY; 82962